=== PATIENT | female | born 1980 | race African-American/Black ===

== ENCOUNTER 2017-12-29 12:44 | Emergency (ER) | payer OTHER, BC ==
[~2017-12-29] VITALS: Ht 170.2 cm; Wt 135.2 kg
[2017-12-29 12:51] VITALS: BP 164/109; Ht 170.2 cm; Wt 135.2 kg
[2017-12-29] MEDS ORDERED: CYCLOBENZAPRINE10 MG PO (12:53)
[2017-12-29] MEDS ORDERED: KLONOPIN1 MG PO (12:53)
[2017-12-29] MEDS ORDERED: PHENERGAN25 M1 PO (12:54)
[2017-12-29] MEDS ORDERED: CELEXA40 MG PO (12:54)
[2017-12-29] MEDS ORDERED: SYNTHROID150 MCG PO (12:55)
[2017-12-29] MEDS ORDERED: FLOVENT HFA 22012 GM (12:56)
[2017-12-29] MEDS ORDERED: ALBUTEROL SULF8.5 GM INH (12:56)
[2017-12-29] MEDS ORDERED: LIBRIUM25 MG PO (12:59)
[2017-12-29] MEDS ORDERED: OMEPRAZOLE40 MG PO (13:00)
[2017-12-29] MEDS ORDERED: MINIPRESS1 MG PO (13:00)
[2017-12-29] MEDS ORDERED: BENTYL10 MG PO (13:01)
[2017-12-29] MEDS ORDERED: FLOVENT HFA 11012 GM INH (13:02)
[2017-12-29] MEDS ORDERED: TRAMADOL HCL E100 M1 PO (15:34)
== END 2017-12-29 17:18 | disposition home or self-care (01) ==
LOC: D.ER 12:44
DX: S23.3XXA Sprain of ligaments of thoracic spine, initial encounter (principal); X50.1XXA Overexertion from prolonged static or awkward postures, initial encounter; Y93.89 Activity, other specified; Y92.019 Unspecified place in single-family (private) house as the place of occurrence of the external cause; E07.9 Disorder of thyroid, unspecified; K21.9 Gastro-esophageal reflux disease without esophagitis; M32.9 Systemic lupus erythematosus, unspecified

== ENCOUNTER 2018-07-22 19:29 | Emergency (ER) | payer BC ==
[~2018-07-22] VITALS: Ht 170.2 cm; Wt 138.6 kg
[~2018-07-22 19:29] MED LIST: ALBUTEROL SULF8.5 GM INH; BENTYL10 MG PO; CELEXA40 MG PO; CYCLOBENZAPRINE10 MG PO; FLOVENT HFA 11012 GM INH; FLOVENT HFA 22012 GM; KLONOPIN1 MG PO; LIBRIUM25 MG PO; MINIPRESS1 MG PO; OMEPRAZOLE40 MG PO; PHENERGAN25 M1 PO; SYNTHROID150 MCG PO; TRAMADOL HCL E100 M1 PO
[2018-07-22 19:59] VITALS: Ht 170.2 cm; Wt 138.6 kg
[2018-07-22 21:20] LABS: APPEARANCE HAZY (CLEAR); BILIRUBIN NEGATIVE (NEGATIVE); COLOR YELLOW (YELLOW); GLUCOSE NEGATIVE (NEGATIVE); KETONE NEGATIVE (NEGATIVE); NITRITE NEGATIVE (NEGATIVE); PROTEIN NEGATIVE (NEGATIVE); UROBILINOGEN NORMAL (NORMAL)
[2018-07-22 21:21] LABS: BACTERIA MANY /hpf (NONE SEEN); EPITHELIAL CELLS 0-5 /hpf (0-5); RED CELLS - URINE >50 /hpf (0-5); WHITE CELLS - URINE 0-5 /hpf (0-5)
[2018-07-22 21:43] LABS: HCG SERUM NEGATIVE (NEGATIVE)
[2018-07-22 21:54] LABS: ANION GAP 13.8 mmol/L (8-16); BILIRUBIN - TOTAL 0.42 mg/dL (0.2-1.3); CALCIUM 8.5 mg/dL (8.5-10.1); CARBON DIOXIDE 25.1 mmol/L (21.0-32.0); POTASSIUM - SERUM 3.9 mmol/L (3.5-5.1); PROTEIN - SERUM 7.3 g/dL (6.4-8.2)
[2018-07-22 22:11] LABS: BASOPHILS 0.5 % (0-2); EOSINOPHILS 2.1 % (0-7); HEMOGLOBIN 10.8 g/dL (12-16); IMMATURE GRANULOCYTES 1.5 % (0-5); LYMPHOCYTES 21.8 % (15-50); MCH 21.7 pg (26.0-34.0); MCHC 31.8 g/dL (31.0-37.0); MCV 68.4 fL (80.0-100.0); MEAN PLATELET VOLUME 9.3 fL (7.4-10.4); MONOCYTES 7.9 % (2-11); NEUTROPHILS 66.2 % (40-80); PLATELET COUNT 187 10x3/uL (130-400); RBC 4.97 10x6/uL (4.00-5.40); RDW 17.9 % (11.5-14.5); WBC 7.8 10x3/uL (4.8-10.8)
[2018-07-22] MEDS ORDERED: TORADOL10 MG PO (22:53)
[2018-07-22] MEDS ORDERED: ONDANSETRON8 MG/TAB PO (22:53)
[2018-07-23 00:35] VITALS: BP 164/94
[2018-07-24] MEDS ORDERED: HYDROCODON-ACE1 EAC2 PO (17:37)
== END 2018-07-23 00:36 | disposition home or self-care (01) ==
LOC: D.ER 19:29
PROVIDERS: Emergency Medicine
DX: R10.9 Unspecified abdominal pain (principal); M32.9 Systemic lupus erythematosus, unspecified; R11.2 Nausea with vomiting, unspecified

== ENCOUNTER 2018-07-24 10:10 | Emergency (ER) | payer BC ==
[~2018-07-24] VITALS: Ht 170.2 cm; Wt 137.7 kg
[~2018-07-24 10:10] MED LIST changes: +ONDANSETRON8 MG/TAB PO; +TORADOL10 MG PO
[2018-07-24 10:21] VITALS: Ht 170.2 cm; Wt 137.7 kg
[2018-07-24 11:21] LABS: APPEARANCE SL CLDY (CLEAR); BACTERIA FEW /hpf (NONE SEEN); BILIRUBIN NEGATIVE (NEGATIVE); COLOR YELLOW-PINK (YELLOW); EPITHELIAL CELLS OCC /hpf (0-5); GLUCOSE NEGATIVE (NEGATIVE); KETONE NEGATIVE (NEGATIVE); NITRITE NEGATIVE (NEGATIVE); PROTEIN NEGATIVE (NEGATIVE); RED CELLS - URINE >50 /hpf (0-5); UROBILINOGEN NORMAL (NORMAL); WHITE CELLS - URINE OCC /hpf (0-5)
[2018-07-24 11:47] LABS: BASOPHILS 0.4 % (0-2); EOSINOPHILS 1.4 % (0-7); HEMATOCRIT 36.2 % (36.0-48.0); HEMOGLOBIN 11.5 g/dL (12-16); IMMATURE GRANULOCYTES 0.5 % (0-5); LYMPHOCYTES 15.9 % (15-50); MCH 21.9 pg (26.0-34.0); MCHC 31.8 g/dL (31.0-37.0); MCV 68.8 fL (80.0-100.0); MEAN PLATELET VOLUME 9.6 fL (7.4-10.4); MONOCYTES 5.4 % (2-11); NEUTROPHILS 76.4 % (40-80); PLATELET COUNT 208 10x3/uL (130-400); RBC 5.26 10x6/uL (4.00-5.40); RDW 17.5 % (11.5-14.5)
[2018-07-24 12:00] LABS: WBC 5.6 10x3/uL (4.8-10.8)
[2018-07-24 12:11] LABS: ALKALINE PHOSPHATASE 111 U/L (46-116); BILIRUBIN - TOTAL 0.49 mg/dL (0.2-1.3); CALC OSMOLALITY 273 mosm/kg (275-300); CALCIUM 8.8 mg/dL (8.5-10.1); CARBON DIOXIDE 28.2 mmol/L (21.0-32.0); CHLORIDE - SERUM 101 mmol/L (98-107); GLUCOSE 89 mg/dL (74-106); POTASSIUM - SERUM 4.1 mmol/L (3.5-5.1); PROTEIN - SERUM 7.8 g/dL (6.4-8.2); SODIUM 138 mmol/L (136-145); UREA NITROGEN 9 mg/dL (7-18); eGFR NON AFRICAN AMERICAN 65 mL/min (90-120)
[2018-07-24 12:14] LABS: ALT (SGPT) 39 U/L (10-68)
[2018-07-24 12:15] LABS: AMYLASE - SERUM 65 U/L (25-115); LIPASE 71 U/L (73-393)
[2018-07-24 12:17] LABS: TROPONIN-I < 0.017 ng/mL (0.000-0.060)
[2018-07-24 14:10] LABS: ERYTHROCYTE SEDIMENTATION RATE 38 mm/hr (0-20)
[2018-07-24 17:34] VITALS: BP 148/83
[2018-07-24] MEDS ORDERED: HYDROCODON-ACE1 EAC2 PO (17:37)
== END 2018-07-24 17:50 | disposition home or self-care (01) ==
LOC: D.ER 10:10
PROVIDERS: Family Medicine
DX: M54.5 Low back pain (principal); R10.12 Left upper quadrant pain; R11.2 Nausea with vomiting, unspecified

== ENCOUNTER 2018-08-27 18:47 | Emergency (ER) | payer BC ==
[~2018-08-27] VITALS: Ht 170.2 cm; Wt 127.3 kg
[~2018-08-27 18:47] MED LIST changes: +HYDROCODON-ACE1 EAC2 PO
[2018-08-27 18:52] VITALS: Ht 170.2 cm; Wt 127.3 kg
[2018-08-27 20:05] LABS: BASOPHILS 0.2 % (0-2); EOSINOPHILS 2.3 % (0-7); HEMATOCRIT 35.2 % (36.0-48.0); HEMOGLOBIN 11.1 g/dL (12-16); IMMATURE GRANULOCYTES 0.8 % (0-5); MCH 21.4 pg (26.0-34.0); MCHC 31.5 g/dL (31.0-37.0); MEAN PLATELET VOLUME 8.9 fL (7.4-10.4); NEUTROPHILS 76.7 % (40-80); PLATELET COUNT 190 10x3/uL (130-400); RBC 5.18 10x6/uL (4.00-5.40); RDW 16.1 % (11.5-14.5); WBC 8.8 10x3/uL (4.8-10.8)
[2018-08-27 20:13] LABS: APTT 27.4 SECONDS (22.8-39.4); INR 1.13 (0.85-1.17)
[2018-08-27 20:19] LABS: ALBUMIN 2.8 g/dL (3.4-5.0); ALKALINE PHOSPHATASE 117 U/L (46-116); ALT (SGPT) 35 U/L (10-68); BILIRUBIN - TOTAL 0.34 mg/dL (0.2-1.3); CALC OSMOLALITY 273 mosm/kg (275-300); CALCIUM 8.4 mg/dL (8.5-10.1); CARBON DIOXIDE 28.4 mmol/L (21.0-32.0); CHLORIDE - SERUM 104 mmol/L (98-107); GLUCOSE 102 mg/dL (74-106); PROTEIN - SERUM 6.7 g/dL (6.4-8.2); SODIUM 138 mmol/L (136-145); UREA NITROGEN 8 mg/dL (7-18); eGFR NON AFRICAN AMERICAN 65 mL/min (90-120)
[2018-08-27 20:32] LABS: CKMB 0.1 U/L (0.0-3.6); CREATINE KINASE 28 UL (21-215); MAGNESIUM - SERUM 1.8 mg/dL (1.8-2.4)
[2018-08-27 20:34] LABS: TROPONIN-I < 0.017 ng/mL (0.000-0.060)
[2018-08-27 22:33] LABS: APPEARANCE CLEAR (CLEAR); BILIRUBIN NEGATIVE (NEGATIVE); COLOR YELLOW (YELLOW); GLUCOSE NEGATIVE (NEGATIVE); KETONE NEGATIVE (NEGATIVE); NITRITE NEGATIVE (NEGATIVE); PROTEIN NEGATIVE (NEGATIVE); SPECIFIC GRAVITY 1.005 (1.005-1.020); UROBILINOGEN NORMAL (NORMAL)
[2018-08-28 00:45] VITALS: BP 128/85
== END 2018-08-28 00:48 | disposition other institution (70) ==
LOC: D.ER 18:47
PROVIDERS: Emergency Medicine; Family Medicine
DX: R41.82 Altered mental status, unspecified (principal); G40.89 Other seizures; R47.01 Aphasia; R41.0 Disorientation, unspecified

== ENCOUNTER 2018-10-22 19:12 | Inpatient (IN) | payer BC ==
[~2018-10-22] VITALS: Ht 170.2 cm; Wt 141.5 kg
[2018-10-22] MEDS ORDERED: SYNTHROID50 MCG PO (19:43)
[2018-10-22] MEDS ORDERED: LEVSIN/ANASP0.125 MG PO (19:44)
[2018-10-22] MEDS ORDERED: TIROSINT13 MCG PO (19:44)
[2018-10-22 20:01] LABS: APPEARANCE CLEAR (CLEAR); BILIRUBIN NEGATIVE (NEGATIVE); COLOR YELLOW (YELLOW); GLUCOSE NEGATIVE (NEGATIVE); KETONE MODERATE mg/dL (NEGATIVE); NITRITE NEGATIVE (NEGATIVE); PROTEIN NEGATIVE (NEGATIVE); UROBILINOGEN NORMAL (NORMAL)
[2018-10-22 20:19] LABS: BASOPHILS 0.4 % (0-2); EOSINOPHILS 2.7 % (0-7); HEMOGLOBIN 11.4 g/dL (12-16); IMMATURE GRANULOCYTES 0.4 % (0-5); LYMPHOCYTES 20.4 % (15-50); MCH 21.6 pg (26.0-34.0); MCHC 32.6 g/dL (31.0-37.0); MCV 66.4 fL (80.0-100.0); MEAN PLATELET VOLUME 9.3 fL (7.4-10.4); MONOCYTES 7.8 % (2-11); NEUTROPHILS 68.3 % (40-80); PLATELET COUNT 221 10x3/uL (130-400); RBC 5.27 10x6/uL (4.00-5.40); RDW 16.8 % (11.5-14.5); WBC 7.5 10x3/uL (4.8-10.8)
[2018-10-22 20:48] LABS: ALBUMIN 3.3 g/dL (3.4-5.0); ALKALINE PHOSPHATASE 83 U/L (46-116); ALT (SGPT) 19 U/L (10-68); BILIRUBIN - TOTAL 1.28 mg/dL (0.2-1.3); CALC OSMOLALITY 274 mosm/kg (275-300); CALCIUM 8.5 mg/dL (8.5-10.1); CARBON DIOXIDE 26.5 mmol/L (21.0-32.0); CHLORIDE - SERUM 104 mmol/L (98-107); CREATININE - SERUM 0.9 mg/dL (0.6-1.3); GLUCOSE 76 mg/dL (74-106); POTASSIUM - SERUM 4.4 mmol/L (3.5-5.1); PROTEIN - SERUM 7.7 g/dL (6.4-8.2); SODIUM 139 mmol/L (136-145); UREA NITROGEN 7 mg/dL (7-18); eGFR NON AFRICAN AMERICAN 73 mL/min (90-120)
[2018-10-22 20:51] LABS: AMYLASE - SERUM 54 U/L (25-115); LIPASE 56 U/L (73-393)
[2018-10-22 20:52] LABS: TROPONIN-I < 0.017 ng/mL (0.000-0.060)
--- NOTE | 2018-10-22 22:18 | NUR ---
PT C/O ABD PAIN, RATED 8/10. EDP NOTIFIED.
[2018-10-22 22:30] VITALS: BP 132/81
--- NOTE | 2018-10-22 22:47 | NUR ---
PT UNABLE TO KEEP CONTRAST DOWN, RADIOLOGY AND EDP NOTIFED.
--- NOTE | 2018-10-22 23:01 | NUR ---
PT RETURNED FROM CT VIA STRETCHER.
--- NOTE | 2018-10-23 00:45 | NUR ---
PT PROVIDED SMALL CUP OF LEMON KLUTI KAAH SODA FOR PO CHALLENGE.
--- NOTE | 2018-10-23 00:48 | NUR ---
PT NON DESTRUCTIVE EVALUATION MANAGER LIGHT. PT REPORTS SHE WAS NOT ABLE TO KEEP SODA DOWN. EDP NOTIFIED.
--- NOTE | 2018-10-23 01:49 | NUR ---
DR KENYON NOTIFIED AND REVIEWED PT's BEHAVIOR AND ASSESSMENT RESULTS. PT IS A LOW RISK PER DR KENYON. DR KENYON STATED TO GIVE RESOURCES TO PT AT TIME OF DISCHARGE. NO FURTHER ORDERS AT THIS TIME. RESOURCES REVIEWED WITH PT AND SHE VERVALIZED UNDERSTANDING.
--- NOTE | 2018-10-23 01:57 | NUR ---
20G R EJ PLACED BY SHANDA SLATER.
--- NOTE | 2018-10-23 02:28 | NUR ---
REC'D PATIENT FROM ER. PATIENT HAS NO S/S OF DISTRESS. VSS. FAMILY AT BEDSIDE. COMPLETED ADMISSION. PATIENT DENIES NEEDS AT THIS TIME. BED IN LOWEST POSITION AND CALL LIGHT WITHIN REACH. ENCOURAGED THE PATIENT TO CALL IF SHE HAS NEEDS. WILL CONTINUE TO MONITOR.
[2018-10-23 02:41] VITALS: BP 137/90; BMI 49.0
[2018-10-23] MEDS ORDERED: TOFRANIL25 MG PO (02:41)
[2018-10-23] MEDS ORDERED: MIDODRINE HCL5 MG PO (02:41)
--- NOTE | 2018-10-23 03:00 | NUR ---
SPOKE WITH BATCH AND FURNACE MANAGER IN REGARDS TO SUICIDE RISK SCREENING. PATIENT WAS SEEN IN ER AND CONSIDERED TO BE LOW RISK .
[2018-10-23 03:45] VITALS: BP 111/69
[2018-10-23 07:53] VITALS: BP 102/46
--- NOTE | 2018-10-23 08:00 | NUR ---
ALERT AND ORIENTED X4. ABDOMEN OBESE WITH INCREASED TENDRNESS TO RUQ ANTERIOR WITH BS NOTED X4. NO PERIPHERAL EDEMA NOTED. HRRR AND REFUSES SCD'S THIS AM. ZOFRAN AND IVF INFUSING AT PRESCRIBED RATED WITH CONTINUED NAUSEA. HRRR AND DENIES ANY CHEST PAIN OR DISCOMFORT. ENCOURAGED TO USE CALL LIGHT FOR ASSIST.
[2018-10-23 10:57] LABS: % SATURATION 22 % (15-55); IRON 69 ug/dl (35-150); TOTAL IRON BIND CAPACITY 307 ug/dl (260-445); UNSAT IRON BIND CAPACITY 238 ug/dl (150-375)
[2018-10-23 19:55] VITALS: BP 124/83
--- NOTE | 2018-10-23 21:25 | NUR ---
SPOKE WITH DR. WALKER PER THE PATIENT AND FAMILY REQUEST IN REGARDS TO IV PAIN MEDICATION FOR THE PATIENT'S CRAMPING ABDOMINAL PAIN. DR. WALKER ORDERED NORCO-5 Q6HP FOR PAIN.
--- NOTE | 2018-10-23 21:37 | NUR ---
NOTIFIED BY THE PATIENT'S THAT THE PATIENT WOULD LIKE TO LEAVE A
--- NOTE | 2018-10-23 21:41 | NUR ---
NOTIFIED WEB ENGINEER THAT THE PATIENT HAS REQUESTED TO LEAVE AMA
--- NOTE | 2018-10-23 21:48 | NUR ---
LEFT DR. DENISE Vega MESSAGE
--- NOTE | 2018-10-23 21:51 | NUR ---
NOTIFIED DR. WALKER THAT THE PATIENT IS LEAVING A
--- NOTE | 2018-10-23 22:06 | NUR ---
NOTIFIED THE AT RISK SPECIALIST THAT THE PATIENT REQUESTED TO SPEAK WITH HER.
--- NOTE | 2018-10-23 23:27 | NUR ---
PATIENT DECIDED NOT TO LEAVE AMA AND SPEAK WITH THE DOCTOR IN THE MORNING.
[2018-10-24 04:33] VITALS: BP 137/65
[2018-10-24 06:50] LABS: BASOPHILS 0.2 % (0-2); EOSINOPHILS 3.3 % (0-7); HEMATOCRIT 31.7 % (36.0-48.0); HEMOGLOBIN 10.1 g/dL (12-16); IMMATURE GRANULOCYTES 0.2 % (0-5); LYMPHOCYTES 20.3 % (15-50); MCH 21.4 pg (26.0-34.0); MCHC 31.9 g/dL (31.0-37.0); MCV 67.2 fL (80.0-100.0); MEAN PLATELET VOLUME 9.3 fL (7.4-10.4); MONOCYTES 7.4 % (2-11); NEUTROPHILS 68.6 % (40-80); PLATELET COUNT 179 10x3/uL (130-400); RBC 4.72 10x6/uL (4.00-5.40); RDW 16.8 % (11.5-14.5)
[2018-10-24 06:56] LABS: WBC 4.5 10x3/uL (4.8-10.8)
[2018-10-24 06:59] LABS: ANION GAP 13.5 mmol/L (8-16); CALCIUM 7.3 mg/dL (8.5-10.1); CARBON DIOXIDE 23.2 mmol/L (21.0-32.0); CREATININE - SERUM 0.9 mg/dL (0.6-1.3)
--- NOTE | 2018-10-24 07:00 | NUR ---
PT RESTING, EYES CLOSED. RR EVEN AND UNLABORED. NO DISTRESS NOTED. WILL CONTINUE TO MONITOR.
[2018-10-24 07:01] LABS: POTASSIUM - SERUM 3.7 mmol/L (3.5-5.1)
[2018-10-24 07:13] VITALS: BP 144/77
[2018-10-24 09:17] VITALS: BP 118/69
[2018-10-24 14:40] VITALS: Ht 170.2 cm; Wt 141.5 kg
--- NOTE | 2018-10-24 16:10 | NUR ---
PT VOMITED PHENERGAN P.O. PHENERGAN IM WAS ADMINISTERED.
[2018-10-24 18:02] VITALS: BP 108/69
[2018-10-24 20:07] VITALS: BP 99/69
[2018-10-24 23:45] VITALS: BP 94/55
[2018-10-25 05:20] VITALS: BP 108/62
[2018-10-25 06:38] LABS: BASOPHILS 0.4 % (0-2); EOSINOPHILS 5.1 % (0-7); HEMATOCRIT 32.6 % (36.0-48.0); HEMOGLOBIN 10.3 g/dL (12-16); IMMATURE GRANULOCYTES 0.7 % (0-5); LYMPHOCYTES 22.1 % (15-50); MCH 21.2 pg (26.0-34.0); MCHC 31.6 g/dL (31.0-37.0); MCV 67.1 fL (80.0-100.0); MEAN PLATELET VOLUME 9.2 fL (7.4-10.4); MONOCYTES 6.8 % (2-11); NEUTROPHILS 64.9 % (40-80); PLATELET COUNT 191 10x3/uL (130-400); RBC 4.86 10x6/uL (4.00-5.40); RDW 16.9 % (11.5-14.5); WBC 4.5 10x3/uL (4.8-10.8)
[2018-10-25 07:10] LABS: ALBUMIN 2.5 g/dL (3.4-5.0); BILIRUBIN - TOTAL 0.54 mg/dL (0.2-1.3); CALCIUM 7.4 mg/dL (8.5-10.1); CARBON DIOXIDE 25.6 mmol/L (21.0-32.0); CREATININE - SERUM 1.1 mg/dL (0.6-1.3); POTASSIUM - SERUM 3.6 mmol/L (3.5-5.1); PROTEIN - SERUM 5.9 g/dL (6.4-8.2)
[2018-10-25 07:29] VITALS: BP 135/75
--- NOTE | 2018-10-25 08:43 | NUR ---
PT RESTING. RR EVEN AND UNLABORED. DENIES NEEDS AT THIS TIME. WILL CONTINUE TO MONITOR.
--- NOTE | 2018-10-25 09:54 | NUR ---
UPON ENTERING ROOM, PT STATES SHE HAS 10/10 CHEST PAIN THAT IS SHARP AND CRUSHING. VSS AT THIS TIME. SPOKE WITH CIGAR PATCHER. STATES PT IS RUNNING SINUS RHYTHM 98. EKG COMPLETE STATES NORMAL SINUS 84. PEG KENNEDY APN NOTIFIED. CARDIAC ENZYMES ORDERED. LAB CALLED AND MADE AWARE. PT IS CALM AND RR EVEN AND UNLABORED. O2 2L APPLIED. WILL CONTINUE TO MONITOR.
[2018-10-25 11:07] LABS: CKMB 0.8 U/L (0.0-3.6); CREATINE KINASE 166 UL (21-215); TROPONIN-I < 0.017 ng/mL (0.000-0.060)
--- NOTE | 2018-10-25 11:17 | NUR ---
PT STATES CP IS RESOLVED.
--- NOTE | 2018-10-25 12:24 | NUR ---
I have reviewed this patient and I concur with the Shift Assessment completed by the Licensed Practical Nurse today this shift.
[2018-10-25 17:03] LABS: CKMB 0.8 U/L (0.0-3.6); CREATINE KINASE 156 UL (21-215)
[2018-10-25 17:10] LABS: TROPONIN-I < 0.017 ng/mL (0.000-0.060)
--- NOTE | 2018-10-25 17:27 | NUR ---
PT REFUSED MEDICATIONS. STATED SHE DID NOT THINK SHE COULD HOLD THEM DOWN.
[2018-10-25 18:11] VITALS: BP 119/82
--- NOTE | 2018-10-25 19:09 | NUR ---
PATIENT RESTING IN BED WITH GUEST AT BEDSIDE. NO S/S OF DISTRESS AND DENIES NEEDS AT THIS TIME. BED IN LOWEST POSITION AND CALL LIGHT WITHIN REACH. ENCOURAGED THE PATIENT TO CALL IF SHE HAS NEEDS. WILL CONTINUE TO MONITOR.
--- NOTE | 2018-10-25 19:51 | MORECARE ---
CASE MANAGEMENT DISCHARGE SUMMARY PATIENT: PRIYANKA EL UNIT: [id number] ADM DATE: 10/23/18 AGE: 38 : [birth year] SEX: F ROOM/BED: D.1208 AUTHOR: JOSE CANO PHYSICIAN: REFERRING PHYSICIAN: DELISA WALKER MD DATE OF SERVICE: 10/25/18 Discharge Plan Patient Name: PRIYANKA EL Facility: [facility]:[place] : 1980 Planned Disposition: Home or Self Care Anticipated Discharge Date: Discharge Date: Expected LOS: Initial Reviewer: [email or web address] Initial Review Date: 10/25/2018 Generated: 10/25/18 8:51 pm External Providers External Provider: OTHER-OTHER Next Contact Date: Service Request Date: Service Type: Resolution: Reviewer: Comments: Patient Name: PRIYANKA EL Page 48495 at 1950 All edits/amendments must be made on the electronic document DICTATION DATE: 10/25/181950 SYNTHETIC PLASTERER: RAVINDER 10/25/181950 RPT#: [id number] DC DATE: STATUS: ADM IN [facility] [id number] [place] [address] END OF REPORT
--- NOTE | 2018-10-25 19:58 | MORECARE ---
CASE MANAGEMENT DISCHARGE SUMMARY PATIENT: PRIYANKA EL UNIT: [id number] ADM DATE: 10/25/18 AGE: 38 : 78 SEX: F ROOM/BED: D.1208 AUTHOR: JEROMEDOC PHYSICIAN: REFERRING PHYSICIAN: DELISA WALKER MD DATE OF SERVICE: 10/25/18 Discharge Plan Patient Name: PRIYANKA EL Facility: [facility]:[place] : 1980 Planned Disposition: Home or Self Care Anticipated Discharge Date: Discharge Date: Expected LOS: Initial Reviewer: [email or web address] Initial Review Date: 10/25/2018 Generated: 10/25/18 8:58 pm Comments DCP- Discharge Planning Updated by [email or web address]: Anushka Chavez on 10/25/18 6:[address] Patient Name: PRIYANKA EL Admission Status: ER Accout number: [id number] Admission Date: 10-23-2018 : 1980 Admission Diagnosis: Attending: DELISA WALKER Current LOS: 2 Anticipated DC Date: Planned Disposition: Home or Self Care Primary Insurance: [employer] Discharge Planning Comments: CM met with patient to complete initial dc planning assessment. CM educated patient on the CM role and verbal consent given by patient to complete assessment. Patient lives at home with her where she is independent with her care. At discharge patient plans to return home and feels this is a safe discharge. CM discussed availability of home health, rehab services, and medical equipment. Patient will have family drive her home upon discharge.Patient denied known discharge needs at this time. CM will continue to follow and will assist as needed with dc plans/needs. Machined Parts Metal Sprayer: Anushka Chavez DCPIA - Discharge Planning Initial Assessment Updated by [email or web address]: Anushka Chavez on 10/25/18 7:52 pm * Is the patient Alert and Oriented? Yes * How many steps to enter\exit or inside your home? * PCP KRISTAL FLORES * Pharmacy [facility] * Preadmission Environment Home with Family * ADLs Independent * Equipment None * List name and contact numbers for known caregivers / representatives who currently or will assist patient after discharge: NIMCO LE - [facility]- [phone] * Verbal permission to speak to the caregivers and representatives has been obtained from the patient. Yes * Community resources currently utilized None * Additional services required to return to the preadmission environment? No * Can the patient safely return to the preadmission environment? Yes * Has this patient been hospitalized within the prior 30 days at any hospital? No Last DP export: 10/25/18 6:51 p Patient Name: PRIYANKA EL Page 13468 at 1960 All edits/amendments must be made on the electronic document DICTATION DATE: 10/25/181956 INFORMATION TECHNOLOGY SPECIALIST: RAVINDER 10/25/181956 RPT#: [id number] DC DATE: STATUS: ADM IN [facility] [address] [place] [address] END OF REPORT
[2018-10-25 20:12] VITALS: BP 133/95
--- NOTE | 2018-10-25 22:53 | NUR ---
RESPONDED TO PATIENT'S CALL LIGHT. PATIENT STATED SHE THINKS SHE "PULLED SOMETHING" IN HER UPPER LEG/GROIN AREA WHILE VOMITING. PATIENT ASKED IF SHE COULD HAVE SOMETHING ELSE FOR PAIN. I EXPLAINED TO THE PATIENT THAT SHE HAD PAIN MEDICATION TWO HOURS AGO AND THAT I COULD MAKE HER A HEAT OR ICE PACK IF SHE WOULD LIKE. THE PATIENT STATED SHE WOULD TRY A HEAT PACK AND REQUESTED THE DOCTOR BE CALLED AND ASKED IF HER NORCO CAN BE INCREASED.
[2018-10-25 22:55] LABS: CKMB 1.1 U/L (0.0-3.6); CREATINE KINASE 179 UL (21-215)
[2018-10-25 22:56] LABS: TROPONIN-I < 0.017 ng/mL (0.000-0.060)
--- NOTE | 2018-10-25 22:57 | NUR ---
SPOKE WITH BLAS IN REGARDS TO THE PATIENT'S REQUEST. BLAS DID NOT INCREASE PATIENT'S PAIN MEDICATION
[2018-10-26 00:37] VITALS: BP 134/83
[2018-10-26 03:59] VITALS: BP 149/82
[2018-10-26 06:21] LABS: BASOPHILS 0.4 % (0-2); EOSINOPHILS 6.4 % (0-7); HEMATOCRIT 33.1 % (36.0-48.0); HEMOGLOBIN 10.6 g/dL (12-16); IMMATURE GRANULOCYTES 0.4 % (0-5); LYMPHOCYTES 21.5 % (15-50); MCH 21.5 pg (26.0-34.0); MCV 67.3 fL (80.0-100.0); MEAN PLATELET VOLUME 9.5 fL (7.4-10.4); MONOCYTES 7.4 % (2-11); NEUTROPHILS 63.9 % (40-80); PLATELET COUNT 207 10x3/uL (130-400); RBC 4.92 10x6/uL (4.00-5.40); RDW 17.2 % (11.5-14.5)
[2018-10-26 07:00] LABS: UDS - AMPHET NEGATIVE QUAL (NEGATIVE); UDS - BARB NEGATIVE QUAL (NEGATIVE); UDS - BENZO NEGATIVE QUAL (NEGATIVE); UDS - COCAINE NEGATIVE QUAL (NEGATIVE); UDS - OPIATE POSITIVE QUAL (NEGATIVE); UDS - PCP NEGATIVE QUAL (NEGATIVE); UDS - THC NEGATIVE QUAL (NEGATIVE)
[2018-10-26 07:09] LABS: ALBUMIN 2.7 g/dL (3.4-5.0); ANION GAP 14.3 mmol/L (8-16); BILIRUBIN - TOTAL 0.56 mg/dL (0.2-1.3); CALCIUM 8.1 mg/dL (8.5-10.1); CARBON DIOXIDE 23.4 mmol/L (21.0-32.0); CREATININE - SERUM 0.9 mg/dL (0.6-1.3); POTASSIUM - SERUM 3.7 mmol/L (3.5-5.1); PROTEIN - SERUM 6.3 g/dL (6.4-8.2); THYROID STIMULATING HORMONE 14.58 uIU/mL (0.36-3.74)
--- NOTE | 2018-10-26 07:26 | NUR ---
PT SITTING UP IN BED. RR EVEN AND UNLABORED. RECIEVED TISSUES PER REQUEST. PT GIVEN EMESIS BAG AND INSTRUCTED TO USE IT AND CALL IF VOMITING OCCURS. DENIES NEEDS OR PAIN AT THIS TIME AND ENCOURAGED TO DRINK PLENTY OF FLUIDS AND EAT AT LEAST A LITTLE TODAY. WILL CONTINUE TO MONITOR.
[2018-10-26 08:29] VITALS: BP 136/84
--- NOTE | 2018-10-26 09:24 | NUR ---
NUTRITION F//U CHART REVIEWED. DIET NOW CLEAR LIQUID. MAY BENEFIT FROM PROCALAMINE IF UNABLE TO TOLERATE REG DIET IN [address] FOLLOWING
--- NOTE | 2018-10-26 12:35 | NUR ---
I have reviewed this patient and I concur with the Shift Assessment completed by the Licensed Practical Nurse today this shift.
--- NOTE | 2018-10-26 15:56 | NUR ---
CAMRON RN WAS NOTIFIED EXAM WOULD BE DONE 10/27/18. AND FOR PATIENT TO BE NPO AFTER MIDNIGHT.
[2018-10-26 17:09] VITALS: BP 123/89
--- NOTE | 2018-10-26 17:43 | NUR ---
IV DRESSING CHANGED PER PT REQUEST, DRESSING CDI
[2018-10-26 19:00] VITALS: BP 125/88
--- NOTE | 2018-10-26 19:00 | NUR ---
REPORT RECEIVED FROM OFF GOING NURSE. PT IS SITTING UP IN BED WITH FAMILY PRESENT IN ROOM. IT WAS NOTED THAT PIZZA WAS DELIVERED TO ROOM, UNSURE IF FOR PATIENT OR FOR FAMILY. PT IS NOT DEMONSTRATING ANY SIGNS OF DISTRESS AT THIS TIME. INITIAL ASSESSMENT COMPLETED, SEE FLOWSHEET FOR DETAILS. WILL CONTINUE TO MONITOR.
[2018-10-27 04:00] VITALS: BP 115/66
[2018-10-27 06:59] LABS: BASOPHILS 0.4 % (0-2); EOSINOPHILS 6.1 % (0-7); HEMATOCRIT 35.6 % (36.0-48.0); HEMOGLOBIN 11.4 g/dL (12-16); IMMATURE GRANULOCYTES 0.4 % (0-5); LYMPHOCYTES 22.9 % (15-50); MCH 21.6 pg (26.0-34.0); MCV 67.3 fL (80.0-100.0); MEAN PLATELET VOLUME 9.4 fL (7.4-10.4); MONOCYTES 8.6 % (2-11); NEUTROPHILS 61.6 % (40-80); PLATELET COUNT 215 10x3/uL (130-400); RBC 5.29 10x6/uL (4.00-5.40); RDW 17.6 % (11.5-14.5); WBC 5.1 10x3/uL (4.8-10.8)
--- NOTE | 2018-10-27 07:10 | NUR ---
REPORT RECIEVED FROM ELECTRIC WELDER HELPER AND PATIENT CARE ASSUMED. PATIENT LAYING IN BED ON BACK WITH EYES CLOSED AND BREATHING EVENLY. WILL CONTINUE WITH PLAN OF CARE. SR UP X 2 BED IN LOW POSITION AND CALL LIGHT IN REACH.
[2018-10-27 07:12] LABS: ALBUMIN 2.8 g/dL (3.4-5.0); BILIRUBIN - TOTAL 0.62 mg/dL (0.2-1.3); CALCIUM 8.1 mg/dL (8.5-10.1); CARBON DIOXIDE 26.8 mmol/L (21.0-32.0); POTASSIUM - SERUM 3.8 mmol/L (3.5-5.1); PROTEIN - SERUM 7.2 g/dL (6.4-8.2); T4 THYROXIN - FREE 1.54 ng/dL (0.76-1.46)
--- NOTE | 2018-10-27 07:30 | NUR ---
PATIENT COMPLAINS OF ABD PAIN. MEDICATED PER APR. WILL CONTINUE TO MONTITOR. SR UP X 2 BED IN LOW POSITION AND CALL LIGHT IN REACH.
[2018-10-27 08:00] VITALS: BP 138/72
--- NOTE | 2018-10-27 09:15 | NUR ---
PATIENT IS NPO FOR SBS. PATIENT TO RADIOLOGY VIA WC AND RADIOLOGY STAFF. PATIENT IS STABLE AND VSS.
--- NOTE | 2018-10-27 13:15 | NUR ---
PATIENT RETURNED FROM RADIOLOGY. PATIENT COMPLAINS OF NAUSEA. MEDICATED PER WITH ZOFRAN.
[2018-10-27 19:00] VITALS: BP 151/93
--- NOTE | 2018-10-27 19:00 | NUR ---
REPORT RECEIVED FROM OFF GOING NURSE. PT IS SITTING UP IN BED WITH FAMILY IN ROOM. PT HAS NO NEEDS AT THIS TIME. NO SIGNS OF ACUTE DISTRESS. WILL CONTINUE TO MONITOR.
[2018-10-28 04:00] VITALS: BP 134/86
[2018-10-28 06:16] LABS: BASOPHILS 0.4 % (0-2); EOSINOPHILS 6.4 % (0-7); HEMATOCRIT 32.1 % (36.0-48.0); HEMOGLOBIN 10.2 g/dL (12-16); IMMATURE GRANULOCYTES 0.4 % (0-5); LYMPHOCYTES 21.4 % (15-50); MCH 21.2 pg (26.0-34.0); MCHC 31.8 g/dL (31.0-37.0); MCV 66.7 fL (80.0-100.0); MEAN PLATELET VOLUME 9.3 fL (7.4-10.4); MONOCYTES 7.2 % (2-11); NEUTROPHILS 64.2 % (40-80); PLATELET COUNT 187 10x3/uL (130-400); RBC 4.81 10x6/uL (4.00-5.40); RDW 17.5 % (11.5-14.5); WBC 5.1 10x3/uL (4.8-10.8)
[2018-10-28 06:38] LABS: ALBUMIN 2.6 g/dL (3.4-5.0); ANION GAP 13.3 mmol/L (8-16); BILIRUBIN - TOTAL 0.53 mg/dL (0.2-1.3); CALCIUM 7.7 mg/dL (8.5-10.1); CARBON DIOXIDE 23.3 mmol/L (21.0-32.0); CREATININE - SERUM 0.9 mg/dL (0.6-1.3); POTASSIUM - SERUM 3.6 mmol/L (3.5-5.1); PROTEIN - SERUM 5.8 g/dL (6.4-8.2)
--- NOTE | 2018-10-28 07:10 | NUR ---
REPORT RECIEVED FROM BINDER CHAINSTITCH AND PATIENT CARE ASSUMED. PATIENT LAYING IN BED ON BACK WITH EYES CLOSED AND BREATHING EVENLY. WILL CONTINUE WITH PLAN OF CARE. SR UP X 2 BED IN LOW POSITION AND CALL LIGHT IN REACH.
[2018-10-28] MEDS ORDERED: HYDROCODON-ACE1 EA10 PO (12:49)
[2018-10-28] MEDS ORDERED: REGLAN5 MG PO (13:41)
[2018-10-28] MEDS ORDERED: PHENERGAN25 M1 PO (14:41)
--- NOTE | 2018-10-28 17:00 | MORECARE ---
CASE MANAGEMENT DISCHARGE SUMMARY PATIENT: PRIYANKA EL UNIT: [id number] ADM DATE: 10/25/18 AGE: 38 : 76 SEX: F ROOM/BED: D.1208 AUTHOR: JEROME,DOC PHYSICIAN: REFERRING PHYSICIAN: DELISA WALKER MD DATE OF SERVICE: 10/28/18 Discharge Plan Patient Name: PRIYANKA EL Facility: [facility]:[place] : 1980 Planned Disposition: Home or Self Care Anticipated Discharge Date: Discharge Date: 10/28/2018 Expected LOS: Initial Reviewer: [email or web address] Initial Review Date: 10/25/2018 Generated: 10/28/18 6:00 pm DCP- Discharge Planning Updated by [email or web address]: Anushka Chavez on 10/25/18 6:[address] Patient Name: PRIYANKA EL Admission Status: ER Accout number: [id number] Admission Date: 10-23-2018 : 1980 Admission Diagnosis: Attending: DELISA WALKER Current LOS: 2 Anticipated DC Date: Planned Disposition: Home or Self Care Primary Insurance: [employer] Discharge Planning Comments: CM met with patient to complete initial dc planning assessment. CM educated patient on the CM role and verbal consent given by patient to complete assessment. Patient lives at home with her where she is independent with her care. At discharge patient plans to return home and feels this is a safe discharge. CM discussed availability of home health, rehab services, and medical equipment. Patient will have family drive her home upon discharge.Patient denied known discharge needs at this time. CM will continue to follow and will assist as needed with dc plans/needs. Sugar Refiner: Anushka Chavez DCPIA - Discharge Planning Initial Assessment Updated by [email or web address]: Anushka Chavez on 10/25/18 7:52 pm * Is the patient Alert and Oriented? Yes * How many steps to enter\exit or inside your home? * PCP KRISTAL FLORES * Pharmacy [facility] * Preadmission Environment Home with Family * ADLs Independent * Equipment None * List name and contact numbers for known caregivers / representatives who currently or will assist patient after discharge: NIMCO EL - [facility]- [phone] * Verbal permission to speak to the caregivers and representatives has been obtained from the patient. Yes * Community resources currently utilized None * Additional services required to return to the preadmission environment? No * Can the patient safely return to the preadmission environment? Yes * Has this patient been hospitalized within the prior 30 days at any hospital? No Last DP export: 10/25/18 6:58 p Patient Name: PRIYANKA EL Page 55255 at 1700 All edits/amendments must be made on the electronic document DICTATION DATE: 10/28/181658 ADJUNCT INSTRUCTOR OF WOMEN'S STUDIES: RAVINDER 10/28/181658 RPT#: [id number] DC DATE:10/28/18 STATUS: DIS IN [facility] [address] [place] [address] END OF REPORT
== END 2018-10-28 16:43 | disposition home or self-care (01) | DRG 392 ==
LOC: D.ER 19:12 → D.M3 10-23 01:04 → OBSVTIME 10-23 01:04 → D.M3 10-25 19:55
PROVIDERS: Family Medicine; Internal Medicine Gastroenterology; ADMIT Internal Medicine Nephrology; ATTEND Internal Medicine Nephrology
DX: K52.9 Noninfective gastroenteritis and colitis, unspecified (principal); E78.5 Hyperlipidemia, unspecified; J45.909 Unspecified asthma, uncomplicated; K21.9 Gastro-esophageal reflux disease without esophagitis; E03.9 Hypothyroidism, unspecified; D50.9 Iron deficiency anemia, unspecified

== ENCOUNTER 2018-12-11 16:47 | Emergency (ER) | payer BC ==
[~2018-12-11] VITALS: Ht 170.2 cm; Wt 140.9 kg
[~2018-12-11 16:47] MED LIST changes: +HYDROCODON-ACE1 EA10 PO; +LEVSIN/ANASP0.125 MG PO; +MIDODRINE HCL5 MG PO; +REGLAN5 MG PO; +SYNTHROID50 MCG PO; +TIROSINT13 MCG PO; +TOFRANIL25 MG PO
[2018-12-11 17:07] VITALS: Ht 170.2 cm; Wt 140.9 kg
[2018-12-11] MEDS ORDERED: ENTOCORT EC3 MG PO (17:12)
[2018-12-11] MEDS ORDERED: STERAPRED 5MG 65 M1 (17:13)
[2018-12-11] MEDS ORDERED: CIPRO250 MG PO (17:13)
[2018-12-11 17:44] LABS: BASOPHILS 0.3 % (0-2); HEMATOCRIT 36.9 % (36.0-48.0); HEMOGLOBIN 11.3 g/dL (12-16); LYMPHOCYTES 24.2 % (15-50); MCH 21.6 pg (26.0-34.0); MCHC 30.6 g/dL (31.0-37.0); MCV 70.6 fL (80.0-100.0); MEAN PLATELET VOLUME 9.6 fL (7.4-10.4); MONOCYTES 8.2 % (2-11); NEUTROPHILS 63.3 % (40-80); RBC 5.23 10x6/uL (4.00-5.40); RDW 17.3 % (11.5-14.5)
[2018-12-11 17:45] LABS: PLATELET COUNT 226 10x3/uL (130-400)
[2018-12-11 17:52] LABS: CALC OSMOLALITY 281 mosm/kg (275-300); CALCIUM 8.5 mg/dL (8.5-10.1); CARBON DIOXIDE 30.2 mmol/L (21.0-32.0); CHLORIDE - SERUM 105 mmol/L (98-107); GLUCOSE 98 mg/dL (74-106); POTASSIUM - SERUM 3.9 mmol/L (3.5-5.1); SODIUM 142 mmol/L (136-145); UREA NITROGEN 9 mg/dL (7-18); eGFR NON AFRICAN AMERICAN 65 mL/min (90-120)
[2018-12-11 18:00] LABS: ALBUMIN 2.9 g/dL (3.4-5.0); ALKALINE PHOSPHATASE 106 U/L (46-116); ALT (SGPT) 24 U/L (10-68); AMYLASE - SERUM 63 U/L (25-115); BILIRUBIN - TOTAL 0.35 mg/dL (0.2-1.3); LIPASE 78 U/L (73-393); PROTEIN - SERUM 6.9 g/dL (6.4-8.2)
[2018-12-11 18:02] LABS: TROPONIN-I < 0.017 ng/mL (0.000-0.060)
[2018-12-11 18:19] LABS: APPEARANCE CLEAR (CLEAR); BILIRUBIN NEGATIVE (NEGATIVE); COLOR YELLOW (YELLOW); GLUCOSE NEGATIVE (NEGATIVE); KETONE NEGATIVE (NEGATIVE); NITRITE NEGATIVE (NEGATIVE); PROTEIN NEGATIVE (NEGATIVE); UROBILINOGEN NORMAL (NORMAL)
[2018-12-11 18:23] LABS: BACTERIA FEW /hpf (NEGATIVE); EPITHELIAL CELLS 0-5 /hpf (0-5); MUCUS <1+ /lpf (NONE SEEN); RED CELLS - URINE 25-50 /hpf (0-5)
[2018-12-11] MEDS ORDERED: NAPROSYN500 MG PO (18:56)
[2018-12-11] MEDS ORDERED: ZOFRAN8 MG PO (18:56)
[2018-12-11] MEDS ORDERED: MACROBID100 MG PO (18:56)
[2018-12-11 20:10] VITALS: BP 125/80
[2018-12-14 19:08] LABS: CHLAMYDIA TRACHOMATIS, NAA Negative (Negative)
== END 2018-12-11 20:10 | disposition home or self-care (01) ==
LOC: D.ER 16:47
PROVIDERS: Emergency Medicine; Family Medicine
DX: R10.32 Left lower quadrant pain (principal); R31.9 Hematuria, unspecified; N39.0 Urinary tract infection, site not specified; M32.9 Systemic lupus erythematosus, unspecified; I25.2 Old myocardial infarction; E07.9 Disorder of thyroid, unspecified; J45.909 Unspecified asthma, uncomplicated; F41.8 Other specified anxiety disorders

== ENCOUNTER 2019-01-15 22:53 | Emergency (ER) | payer BC ==
[~2019-01-15 22:53] MED LIST changes: +CIPRO250 MG PO; +ENTOCORT EC3 MG PO; +MACROBID100 MG PO; +NAPROSYN500 MG PO; +STERAPRED 5MG 65 M1; +ZOFRAN8 MG PO
[2019-01-15 23:01] VITALS: Ht 170.2 cm
[2019-01-15 23:23] LABS: BASOPHILS 0.5 % (0-2); EOSINOPHILS 2.1 % (0-7); HEMATOCRIT 35.7 % (36.0-48.0); HEMOGLOBIN 11.2 g/dL (12-16); IMMATURE GRANULOCYTES 0.5 % (0-5); LYMPHOCYTES 23.6 % (15-50); MCH 21.6 pg (26.0-34.0); MCHC 31.4 g/dL (31.0-37.0); MCV 68.8 fL (80.0-100.0); MEAN PLATELET VOLUME 9.6 fL (7.4-10.4); MONOCYTES 7.9 % (2-11); NEUTROPHILS 65.4 % (40-80); PLATELET COUNT 212 10x3/uL (130-400); RBC 5.19 10x6/uL (4.00-5.40); RDW 17.6 % (11.5-14.5); WBC 5.7 10x3/uL (4.8-10.8)
[2019-01-15 23:29] LABS: CALC OSMOLALITY 273 mosm/kg (275-300); CALCIUM 8.5 mg/dL (8.5-10.1); CARBON DIOXIDE 26.8 mmol/L (21.0-32.0); CHLORIDE - SERUM 101 mmol/L (98-107); CREATININE - SERUM 1.1 mg/dL (0.6-1.3); GLUCOSE 98 mg/dL (74-106); POTASSIUM - SERUM 3.4 mmol/L (3.5-5.1); SODIUM 138 mmol/L (136-145); UREA NITROGEN 7 mg/dL (7-18); eGFR NON AFRICAN AMERICAN 58 mL/min (90-120)
[2019-01-15 23:32] LABS: APTT 31.3 SECONDS (22.8-39.4); INR 1.03 (0.85-1.17)
[2019-01-15 23:44] LABS: ALKALINE PHOSPHATASE 90 U/L (46-116); ALT (SGPT) 17 U/L (10-68); BILIRUBIN - TOTAL 0.46 mg/dL (0.2-1.3); CREATINE KINASE 79 UL (21-215); MAGNESIUM - SERUM 1.6 mg/dL (1.8-2.4); PROTEIN - SERUM 7.6 g/dL (6.4-8.2); TROPONIN-I < 0.017 ng/mL (0.000-0.060)
[2019-01-16] MEDS ORDERED: FERROUS SULFAT325 MG PO (00:06)
[2019-01-16 01:33] VITALS: BP 139/91
== END 2019-01-16 01:33 | disposition home or self-care (01) ==
LOC: D.ER 22:53
PROVIDERS: Emergency Medicine
DX: R41.82 Altered mental status, unspecified (principal); R55 Syncope and collapse; D64.9 Anemia, unspecified; E87.6 Hypokalemia; E83.42 Hypomagnesemia

== ENCOUNTER 2019-02-05 16:08 | Emergency (ER) | payer BC ==
[~2019-02-05] VITALS: Ht 170.2 cm; Wt 150.0 kg
[~2019-02-05 16:08] MED LIST changes: +FERROUS SULFAT325 MG PO
[2019-02-05 16:16] VITALS: Ht 170.2 cm; Wt 150.0 kg
[2019-02-05 16:41] LABS: BASOPHILS 0.4 % (0-2); EOSINOPHILS 0.2 % (0-7); HEMATOCRIT 36.4 % (36.0-48.0); HEMOGLOBIN 11.2 g/dL (12-16); IMMATURE GRANULOCYTES 0.4 % (0-5); MCH 21.2 pg (26.0-34.0); MCHC 30.8 g/dL (31.0-37.0); MCV 68.9 fL (80.0-100.0); MONOCYTES 7.2 % (2-11); NEUTROPHILS 71.8 % (40-80); PLATELET COUNT 233 10x3/uL (130-400); RBC 5.28 10x6/uL (4.00-5.40); RDW 16.8 % (11.5-14.5); WBC 5.7 10x3/uL (4.8-10.8)
[2019-02-05 16:43] LABS: APPEARANCE SL CLDY (CLEAR); BILIRUBIN NEGATIVE (NEGATIVE); COLOR DK YELLOW (YELLOW); GLUCOSE NEGATIVE (NEGATIVE); KETONE NEGATIVE (NEGATIVE); NITRITE NEGATIVE (NEGATIVE); PROTEIN NEGATIVE (NEGATIVE); SPECIFIC GRAVITY 1.015 (1.005-1.020); UROBILINOGEN NORMAL (NORMAL)
[2019-02-05 16:45] LABS: EPITHELIAL CELLS 0-5 /hpf (0-5); WHITE CELLS - URINE 0-5 /hpf (NEGATIVE)
[2019-02-05 16:46] LABS: BACTERIA FEW /hpf (NEGATIVE)
[2019-02-05 16:59] LABS: ANION GAP 11.6 mmol/L (8-16); CALCIUM 8.8 mg/dL (8.5-10.1); CREATININE - SERUM 0.9 mg/dL (0.6-1.3); POTASSIUM - SERUM 3.6 mmol/L (3.5-5.1)
[2019-02-05 17:05] LABS: ALBUMIN 3.3 g/dL (3.4-5.0); BILIRUBIN - TOTAL 0.55 mg/dL (0.2-1.3); PROTEIN - SERUM 7.9 g/dL (6.4-8.2)
[2019-02-05] MEDS ORDERED: PHENERGAN25 MG RC (23:28)
[2019-02-05 23:59] VITALS: BP 126/81
[2019-02-06] MEDS ORDERED: ULTRAM50 MG PO (05:57)
== END 2019-02-05 23:59 | disposition home or self-care (01) ==
LOC: D.ER 16:08
PROVIDERS: Emergency Medicine
DX: K31.84 Gastroparesis (principal); R11.2 Nausea with vomiting, unspecified; E07.9 Disorder of thyroid, unspecified; J45.909 Unspecified asthma, uncomplicated

== ENCOUNTER 2019-02-06 04:03 | Emergency (ER) | payer BC ==
[~2019-02-06] VITALS: Ht 170.2 cm; Wt 127.3 kg
[~2019-02-06 04:03] MED LIST changes: +PHENERGAN25 MG RC
[2019-02-06 04:12] VITALS: Ht 170.2 cm; Wt 127.3 kg
[2019-02-06] MEDS ORDERED: ULTRAM50 MG PO (05:57)
[2019-02-06 06:19] VITALS: BP 132/82
== END 2019-02-06 06:20 | disposition home or self-care (01) ==
LOC: D.ER 04:03
DX: K58.9 Irritable bowel syndrome, unspecified (principal)

== ENCOUNTER 2019-02-18 15:31 | Emergency (ER) | payer BC ==
[~2019-02-18] VITALS: Ht 170.2 cm; Wt 150.0 kg
[~2019-02-18 15:31] MED LIST changes: +ULTRAM50 MG PO
[2019-02-18 15:38] VITALS: Ht 170.2 cm; Wt 150.0 kg
[2019-02-18 16:32] LABS: APPEARANCE HAZY (CLEAR); COLOR PINK (YELLOW)
[2019-02-18 16:33] LABS: BILIRUBIN NEGATIVE (NEGATIVE); GLUCOSE NEGATIVE (NEGATIVE); KETONE NEGATIVE (NEGATIVE); NITRITE NEGATIVE (NEGATIVE); PROTEIN 1+ mg/dL (NEGATIVE); RED CELLS - URINE >50 /hpf (0-5); UROBILINOGEN NORMAL (NORMAL)
[2019-02-18 17:14] LABS: BASOPHILS 0 % (0-2); EOSINOPHILS 0.2 % (0-7); HEMATOCRIT 35.2 % (36.0-48.0); HEMOGLOBIN 10.9 g/dL (12-16); IMMATURE GRANULOCYTES 0.5 % (0-5); LYMPHOCYTES 23.5 % (15-50); MCH 21.1 pg (26.0-34.0); MCV 68.2 fL (80.0-100.0); MEAN PLATELET VOLUME 9.6 fL (7.4-10.4); MONOCYTES 7.4 % (2-11); NEUTROPHILS 68.4 % (40-80); PLATELET COUNT 210 10x3/uL (130-400); RBC 5.16 10x6/uL (4.00-5.40); RDW 16.9 % (11.5-14.5); WBC 4.2 10x3/uL (4.8-10.8)
[2019-02-18 17:23] LABS: INR 1.04 (0.85-1.17); PROTIME 13.6 SECONDS (11.6-15.0)
[2019-02-18 17:24] LABS: APTT 31.4 SECONDS (22.8-39.4); CALC OSMOLALITY 273 mosm/kg (275-300); CALCIUM 8.3 mg/dL (8.5-10.1); CARBON DIOXIDE 30.3 mmol/L (21.0-32.0); CHLORIDE - SERUM 104 mmol/L (98-107); GLUCOSE 88 mg/dL (74-106); POTASSIUM - SERUM 3.9 mmol/L (3.5-5.1); SODIUM 139 mmol/L (136-145); UREA NITROGEN 3 mg/dL (7-18); eGFR NON AFRICAN AMERICAN 65 mL/min (90-120)
[2019-02-18 17:42] LABS: ALBUMIN 2.9 g/dL (3.4-5.0); ALKALINE PHOSPHATASE 60 U/L (46-116); ALT (SGPT) 20 U/L (10-68); BILIRUBIN - TOTAL 0.62 mg/dL (0.2-1.3); CKMB 0.1 U/L (0.0-3.6); CREATINE KINASE 140 UL (21-215); MAGNESIUM - SERUM 1.8 mg/dL (1.8-2.4); PROTEIN - SERUM 7.3 g/dL (6.4-8.2); THYROID STIMULATING HORMONE 41.11 uIU/mL (0.36-3.74)
[2019-02-18 17:47] LABS: TROPONIN-I < 0.017 ng/mL (0.000-0.060)
[2019-02-18] MEDS ORDERED: ZOFRAN ODT4 MG/UDTAB PO (18:46)
[2019-02-18 19:35] VITALS: BP 112/84
== END 2019-02-18 19:35 | disposition home or self-care (01) ==
LOC: D.ER 15:31
PROVIDERS: Emergency Medicine
DX: R51 Headache (principal); R11.2 Nausea with vomiting, unspecified; R07.81 Pleurodynia; W19.XXXA Unspecified fall, initial encounter; Y93.9 Activity, unspecified; Y92.9 Unspecified place or not applicable